=== PATIENT | male | born 1975 | race Caucasian/White ===

== ENCOUNTER 2017-07-08 17:46 | Emergency (ER) | END 2017-07-08 18:32 | disposition left against medical advice (07) ==

== ENCOUNTER 2018-05-28 22:28 | Emergency (ER) | payer MEDICAID ==
[~2018-05-28] VITALS: Wt 138.3 kg
[~2018-05-28 22:28] MED LIST: HYDR-3498 PO; IBUP800T48 PO
[2018-05-28] MEDS ORDERED: SOD CHLORIDE 0.9% 1,000 ML IV STA (23:27)
--- NOTE | 2018-05-29 00:13 | ERD ---
ER Documentation Chief Complaint Chief Complaint HYPERGLYCEMIA X2DAYS; WORSE TODAY W/ N/V FREQUENCY; BG 455MG/DL HPI This is a 43-year-old male who is diabetic he takes metformin and also an injectable weekly antihyperglycemic but is been out of it for 3 weeks because he lost his insurance and can no longer afford it. His blood glucose monitor is been reading over 500 for the past 2 days. No nausea vomiting diarrhea abdominal pain ROS All systems reviewed and are negative except as per history of present illness. Medications Home Meds Active Scripts Ibuprofen* (Motrin*) 800 Mg Tab, 800 MG PO Q6H PRN for PAIN AND OR ELEVATED TEMP, #30 TAB Prov:GIOVANY ARANGO PA-C 10/27/14 Hydrocodone Bit-Acetaminophen* ([place]*) 5-325 Mg Tab, 1 TAB PO Q6 PRN for PAIN, #15 TAB Prov:GIOVANY ARANGO PA-C 10/27/14 Allergies Allergies: Coded Allergies: No Known Allergy (Unverified , 10/30/14) PMhx/Soc Medical and Surgical Hx: pt denies Surgical Hx History of Surgery: No Anesthesia Reaction: No Hx Neurological Disorder: No Hx Respiratory Disorders: No Hx Cardiac Disorders: Yes (HTN) Hx Psychiatric Problems: No Hx Miscellaneous Medical Probl: Yes (DM) Hx Alcohol Use: No Hx Substance Use: No Hx Tobacco Use: No Smoking Status: Never smoker FmHx Family History: No coronary disease Physical Exam Vitals Vital Signs Date Temp Pulse Resp B/P (MAP) Pulse Ox O2 O2 Flow FiO2 Time Delivery Rate 05/28/18 86 22 180/96 100 Room Air 23:11 (124) 05/28/18 97.7 89 20 206/106 98 22:32 (139) Physical Exam Const: Well-developed, well-nourished Head: Atraumatic, normocephalic Eyes: Normal Conjunctiva, PERRLA, EOMI, normal sclera, no nystagmus ENT: Normal External Ears, Nose and Mouth, moist mucus membranes. Neck: Full range of motion. No meningismus, no lymphadenopathy. Resp: Clear to auscultation bilaterally, no wheezing, rhonchi, rales Cardio: Regular rate and rhythm, no murmurs, S1 S2 present Abd: Soft, non tender x 4, non distended. Normal bowel sounds, no guarding or rebound, no pulsitile abdominal masses or bruits Skin: No petechiae or rashes, no ecchymosis , no maculopapular rash Back: No midline or flank tenderness Ext: No cyanosis, or edema, FROM x 4, normal inspection, neurovascularly intact x 4 Neur: Awake and alert, STR 5/5 x 4, sensation intact x 4, no focal findings, cerebellum intact Psych: Normal Mood and Affect Result Diagram: 05/28/18232905/28/182329 Results 24 hrs Laboratory Tests Test 05/28/18 22:35 05/28/18 23:30 Bedside Glucose 455 mg/dL White Blood Count 4.2 10^3/ul Red Blood Count 4.97 10^6/ul Hemoglobin 14.9 g/dl Hematocrit 44.1 % Mean Corpuscular Volume 88.7 fl Mean Corpuscular Hemoglobin 30.0 pg Mean Corpuscular Hemoglobin Concent 33.8 g/dl Red Cell Distribution Width 12.2 % Platelet Count 262 10^3/UL Mean Platelet Volume 10.4 fl Immature Granulocytes % 0.500 % Neutrophils % 50.6 % Lymphocytes % 39.6 % Monocytes % 7.6 % Eosinophils % 1.2 % Basophils % 0.5 % Nucleated Red Blood Cells % 0.0 /100WBC Immature Granulocytes # 0.020 10^3/ul Neutrophils # 2.1 10^3/ul Lymphocytes # 1.7 10^3/ul Monocytes # 0.3 10^3/ul Eosinophils # 0.1 10^3/ul Basophils # 0.0 10^3/ul Nucleated Red Blood Cells # 0.0 10^3/ul Urine Color STRAW Urine Clarity CLEAR Urine pH 6.0 Urine Specific [place] 1.036 Urine Ketones NEGATIVE mg/dL Urine Nitrite NEGATIVE mg/dL Urine Bilirubin NEGATIVE mg/dL Urine Urobilinogen NEGATIVE mg/dL Urine Leukocyte Esterase NEGATIVE [place]/ul Urine Hemoglobin NEGATIVE mg/dL Urine Glucose 3+ mg/dL Urine Total Protein NEGATIVE mg/dl Sodium Level 135 mmol/L Potassium Level 3.9 mmol/L Chloride Level 95 mmol/L Carbon Dioxide Level 29 mmol/L Anion Gap 11 Blood Urea Nitrogen 13 mg/dl Creatinine 0.76 mg/dl Est Glomerular Filtrat Rate mL/min > 60 mL/min Glucose Level 449 mg/dl Calcium Level 10.3 mg/dl Current Medications Medications Dose Sig/Maddy Start Time Status Last (Trade) Ordered Route PRN Stop Time Admin Dose Reason Admin Sodium 1,000 ml @ Q1H STAT 05/28/18 05/28/18 Chloride 1,000 mls/hr IV 23:27 23:37 05/29/18 00:26 Procedures/MDM Patient has elevated glucose of 449 but no signs of DKA. We will keep him on metformin and we will need to add another oral agent until he get his insurance again and afford his medication Departure Diagnosis: Primary Impression: Hyperglycemia Condition: Stable LUIS F DEVRIES DO May 29, 2018 00:13
[2018-05-29] MEDS ORDERED: MTF1000T PO (00:15)
[2018-05-29] MEDS ORDERED: GLIP5TAB13 PO (00:15)
[2018-05-29] MEDS ORDERED: INSULIN LISPRO 100 UNIT/ML VIAL SC ONE ×2 (00:30→00:34)
[2018-05-29 01:00] VITALS: BP 159/93; PULSE 88; RESP 18
[2018-05-29] MEDS ORDERED: DULA0.75 SQ (01:06)
[2018-05-29] MEDS ORDERED: VALS160T20 PO (01:06)
== END 2018-05-29 01:10 | disposition home or self-care (01) ==
LOC: E/R 22:28
DX: E11.65 Type 2 diabetes mellitus with hyperglycemia (principal); I10 Essential (primary) hypertension; Z79.84 Long term (current) use of oral hypoglycemic drugs
CPT/HCPCS: 36415; 80048; 81003; 82962; 85025; 96372; J1815; J7030; Z7502